=== PATIENT | female | born 1965 | race Caucasian/White ===

== ENCOUNTER 2024-02-17 16:23 | Emergency (ER) | payer OTHER ==
[2024-02-17] MEDS ORDERED: Lidocaine 1% w/Epinephrine 1:200K 30 ML VIAL ONE (17:17)
== END 2024-02-17 19:32 | disposition home or self-care (01) ==
LOC: CSHERS 16:23
DX: L02.415 Cutaneous abscess of right lower limb (principal); I10 Essential (primary) hypertension
CPT/HCPCS: 10060; 87070; 87077; 87186; 87205

== ENCOUNTER 2024-02-24 11:32 | Emergency (ER) | payer OTHER | END 2024-02-24 12:24 | disposition home or self-care (01) | LOC: CSHERS 11:32 | DX: Z48.00 Encounter for change or removal of nonsurgical wound dressing (principal); I10 Essential (primary) hypertension | CPT/HCPCS: 87081; 99283 ==